=== PATIENT | male | born 1975 | race Caucasian/White ===

== ENCOUNTER 2017-04-22 19:18 | Emergency (ER) | payer SELFPAY ==
--- NOTE | 2017-04-22 20:00 | NUR ---
PATIENT LEFT WITHOUT BEING SEEN BY DR. NIELSON. NO FURTHER CARE PROVIDED FOR PATIENT.
== END 2017-04-22 20:00 | disposition left against medical advice (07) ==
LOC: MED 19:18
DX: F41.9 Anxiety disorder, unspecified (principal); Z53.21 Procedure and treatment not carried out due to patient leaving prior to being seen by health care provider

== ENCOUNTER 2018-12-21 10:25 | Emergency (ER) | payer SELFPAY ==
[~2018-12-21] VITALS: Ht 170.2 cm; Wt 79.4 kg
[2018-12-21 10:33] VITALS: BP 122/95
--- NOTE | 2018-12-21 10:39 | NUR ---
Patient ambulated to bed 8. RN evaluating patient at bedside.
--- NOTE | 2018-12-21 10:52 | NUR ---
C/O SOB STARTING THIS MORNING. PT REPORTS DRINKING ALOT OF BEER AND POSSIBLY USING METHAMPHETAMINE LAST NIGHT. PT STATES HE BLACKED OUT AND IS NOT SURE IF HE USED METHAMPHETAMINE OR NOT, BUT HE DOES USE IT OCCASIONALLY. BREATH SOUNDS CBTA, SYMMETRICAL, BREATHING UNLABORED, NO ACCESORY MUSCLE USE NOTED. PT IS TACHYPNEIC AT 25 RPM, TACHYCARDIC AT [address] VALENTINE AWARE. PT PLACED IN GOWN AND ON BEDSIDE SALES AND MANAGEMENT TRAINEE. BED IN LOW POSITION, SIDE RAIL UP X1.
--- NOTE | 2018-12-21 10:54 | NUR ---
DR. VALENTINE AT BEDSIDE
[2018-12-21] MEDS ORDERED: NACL 0.9% 1,000 ML IV ONE (10:55)
[2018-12-21 12:11] VITALS: BP 124/80
== END 2018-12-21 12:09 | disposition home or self-care (01) ==
LOC: MED 10:25
DX: F41.9 Anxiety disorder, unspecified (principal); R06.02 Shortness of breath
CPT/HCPCS: 99284

== ENCOUNTER 2018-12-21 14:56 | Emergency (ER) | payer SELFPAY ==
--- NOTE | 2018-12-21 15:08 | NUR ---
PT LEFT WITHOUT BEING SEEN. PT STATED HE FORGOT TO GET HIS PILLS, HE WILL GO TO GET HIS PRESCRIPTION WHICH WAS ORDERED BY PHYSICIAN THIS MORNING AT PREVIOUS VISIT. MADE AWARE.
== END 2018-12-21 15:08 | disposition left against medical advice (07) ==
LOC: MED 14:56
DX: F41.9 Anxiety disorder, unspecified (principal); Z53.21 Procedure and treatment not carried out due to patient leaving prior to being seen by health care provider
CPT/HCPCS: 96372; 99283